=== PATIENT | male | born 1990 | race African-American/Black ===

== ENCOUNTER 2022-10-11 14:08 | Emergency (ER) | payer OTHER ==
[~2022-10-11] VITALS: Ht 175.3 cm; Wt 77.1 kg
[2022-10-11] MEDS ORDERED: HALOPERIDOL IM 5 MG/ML VIAL ONE (14:13)
[2022-10-11] MEDS ORDERED: LORazepam 2 MG/ML VIAL ONE (14:13)
[2022-10-11 14:17] VITALS: BP 139/104
[2022-10-11] MEDS ORDERED: LORazepam 2 MG/ML VIAL IM ONE (14:20)
[2022-10-11] MEDS ORDERED: HALOPERIDOL IM 5 MG/ML VIAL IM ONE (14:20)
--- NOTE | 2022-10-11 14:28 | NUR ---
ON 5150 HOLD. PER [place] [facility], PLACED BY OFFICER Alfredo DILLARD
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
--- NOTE | 2022-10-11 15:46 | NUR ---
pt moved to bed 08 at this time
[2022-10-11 16:08] LABS: BARBITURATE, URINE NEGATIVE ng/ml (NEG <=200); BENZODIAZEPINE, URINE NEGATIVE ng/mL (NEG <=200); CANNABINOID, URINE POSITIVE ng/mL (NEG <=50); COCAINE, URINE NEGATIVE ng/mL (NEG <=300); OPIATE, URINE NEGATIVE ng/mL (NEG <=2000); PHENCYCLIDINE SCREEN,URINE NEGATIVE ng/mL (NEG <=25)
--- NOTE | 2022-10-11 16:28 | NUR ---
PT ATTEMPTING TO LEAVE ROOM "I DONT WANT TO ". REDIRECTED TO ROOM ,SECURITY AT BEDSIDE.
--- NOTE | 2022-10-11 16:31 | NUR ---
LAB AT BEDSIDE
[2022-10-11 16:45] LABS: BASOPHILS % (AUTO) 0.5 % (0.0-2.0); EOSINOPHILS % (AUTO) 0.1 % (0.0-4.0); HEMATOCRIT 39.7 % (36-52); HEMOGLOBIN 13.3 g/dL (12.0-18.0); LYMPHOCYTES # (AUTO) 2.3 K/uL (2.0-11.5); LYMPHOCYTES % (AUTO) 27.4 % (20.5-51.1); MEAN CORPUSCULAR HEMOGLOBIN 30 pg (27-31); MEAN CORPUSCULAR HGB CONC 34 g/dL (33-37); MEAN CORPUSCULAR VOLUME 89.4 fL (80-94); MONOCYTES # (AUTO) 0.8 K/uL (0.8-1.0); MONOCYTES % (AUTO) 9.9 % (1.7-9.3); NEUTROPHILS # (AUTO) 5.3 K/uL (1.8-7.7); NEUTROPHILS % (AUTO) 62.1 % (42.2-75.2); PLATELET COUNT (AUTO) 167 K/uL (140-450); RED BLOOD CELL COUNT(AUTO) 4.44 MIL/uL (4.20-6.10); RED CELL DISTRIBUTION WIDTH 13.3 % (11.6-13.7); WHITE BLOOD COUNT (AUTO) 8.6 K/uL (4.8-10.8)
[2022-10-11 17:09] LABS: ALBUMIN 3.4 g/dL (3.4-5.0); ASPARTATE AMINOTRANSFERASE 20 U/L (15-37); CARBON DIOXIDE 28.8 mmol/L (21-32); CHLORIDE 101 mmol/L (98-107); CREATININE 1.3 mg/dL (0.6-1.3); GFR ARICAN-AMERICAN 81 mL/min (>90); GLUCOSE 84 mg/dL (74-106); POTASSIUM 3.8 mmol/L (3.5-5.1); SODIUM SERUM 139 mmol/L (136-145); TOTAL BILIRUBIN 0.4 mg/dL (0.0-1.0); UREA NITROGEN, BLOOD 19 mg/dL (7-18)
[2022-10-11 17:11] LABS: ACETAMINOPHEN < 0.5 ug/ml (10-30); SALICYLATE < 2.8 mg/dL (2.8-20.0)
--- NOTE | 2022-10-11 18:29 | NUR ---
pt provided w/ dinner. pt awake and eating in bed.
--- NOTE | 2022-10-11 18:47 | NUR ---
PT TAKEN TO CT VIA [facility]LO[facility]
--- NOTE | 2022-10-11 18:59 | NUR ---
PT BROUGHT BACK FROM CT VIA [facility]
--- NOTE | 2022-10-11 19:25 | NUR ---
REPORT GIVEN TO VIRGINIE WANG. TRANSFER OF CARE AT THIS TIME
--- NOTE | 2022-10-11 19:36 | NUR ---
Assumed care of pt and pt is in bed resting with no s/s of distress. Pt sleeping at this time. VSS. Bed in lowest position.
--- NOTE | 2022-10-11 19:37 | NUR ---
Pt states he cannot provide urine at this time.
--- NOTE | 2022-10-11 20:00 | NUR ---
earth moving technician at bedside.
--- NOTE | 2022-10-11 21:20 | NUR ---
per , pt is medically cleared.
--- NOTE | 2022-10-11 21:43 | NUR ---
Pt still sleeping at this time. VSS. No s/s of distress. bed in lowest position. Both side rails up. Close to nurses station.
--- NOTE | 2022-10-12 07:30 | NUR ---
RECEIVED PT REPORT FROM ER NURSE FOR CONTINUITY OF CARE. PT IS STABLE.
--- NOTE | 2022-10-12 08:01 | NUR ---
pt given breakfast tray, eating room with calm demeanor at this tme
[2022-10-12] MEDS ORDERED: levETIRAcetam 500 MG TAB PO SCH ×2 (09:00→21:00)
[2022-10-12] MEDS ORDERED: OXcarbazepine 150 MG TAB PO SCH (09:00)
--- NOTE | 2022-10-12 09:37 | NUR ---
Packet faxed to: [facility]
[2022-10-12 10:24] LABS: CREATINE KINASE MB 6.1 ng/mL (0-3.6)
--- NOTE | 2022-10-12 12:39 | NUR ---
ENDORSED PT REPORT TO FELIPE GARCIA AT [facility] [place]. PT WILL BE GOING TO ROOM 1106A UNDER DR. GOLDBERG. TRANSPORTATION WILL BE ARRIVING AROUND 1300
[2022-10-12 13:11] VITALS: BP 110/95
--- NOTE | 2022-10-12 13:11 | NUR ---
Patient discharged with v/s stable. Written and verbal after care instructions given and explained. Patient verbalized understanding. [facility] with steady gait. All questions addressed prior to discharge. Advised to follow up with PMD. TRANSFERRING TO [facility].
[2022-10-13] MEDS ORDERED: levETIRAcetam 500 MG TAB PO SCH (09:00)
== END 2022-10-12 13:11 ==
LOC: EDBD 14:08 → MED 14:08
DX: F23 Brief psychotic disorder (principal); Z20.822 Contact with and (suspected) exposure to COVID-19; R45.851 Suicidal ideations
CPT/HCPCS: 36415; 70450; 80053; 80305; 82140; 82550; 82553; 85025; 87426; 87635; 93005; 96372; 99285; C9803; G0480; G0482; J1630; J2060